=== PATIENT | male | born 1985 | race Caucasian/White ===

== ENCOUNTER 2018-09-15 20:11 | Inpatient (IN) | payer OTHER ==
[~2018-09-15] VITALS: Ht 160 cm; Wt 74.8 kg
--- NOTE | 2018-09-15 20:40 | NUR ---
INTAKE ASSESSMENT BP: 132/78, HR:95, RR:17, SpO2:96% on RA, T:97.6 F Pt is stable and able to be admitted on the unit. Unit protocols regarding medications and vital signs every 4 hours were explained. Pt verbalized understanding. Will continue admission upon arrival on the unit.
[2018-09-15] MEDS ORDERED: IBUPROFEN 600 MG TABLET PO PRN (21:00)
[2018-09-15] MEDS ORDERED: LOPERAMIDE HCL 2 MG CAPSULE PO PRN ×2 (21:00)
[2018-09-15] MEDS ORDERED: HYDROXYZINE PAMOATE 25 MG CAPSULE PO PRN (21:00)
[2018-09-15] MEDS ORDERED: LORAZEPAM 1 MG TABLET PO PRN ×2 (21:00)
[2018-09-15] MEDS ORDERED: LORAZEPAM 2 MG/1 ML VIAL IM PRN (21:00)
[2018-09-15] MEDS ORDERED: CLONIDINE HCL 0.1 MG TABLET PO PRN (21:00)
[2018-09-15] MEDS ORDERED: SRC ALCOHOL WITHDRAWAL ADMITTING PROTOCOL XX PRN (21:00)
[2018-09-15] MEDS ORDERED: ONDANSETRON 4 MG/2 ML VIAL IM PRN (21:00)
[2018-09-15] MEDS ORDERED: diphenhydrAMINE 50 MG CAPSULE PO PRN (21:00)
[2018-09-15] MEDS ORDERED: ONDANSETRON ODT 4 MG TAB.RAPDIS SL PRN (21:00)
[2018-09-15] MEDS ORDERED: MAGNESIUM HYDROXIDE 30 ML LIQUID UDC PO PRN (21:00)
[2018-09-15] MEDS ORDERED: MIRALAX 17 GM POWD.PACK PO PRN (21:00)
[2018-09-15] MEDS ORDERED: MAG HYDROX/AL HYDROX/SIMETH 30 ML LIQUID UDC PO PRN (21:00)
[2018-09-15] MEDS ORDERED: ACETAMINOPHEN 325 MG TABLET PO PRN (21:00)
--- NOTE | 2018-09-15 21:00 | NUR ---
ADMISSION NOTE Patient is a 33 year old male admitted on 09/15/2018 at 2048 to [facility] for medically supervised withdrawal from ETOH. Patient denies any medical or psychiatric diagnoses. The patient is awake, alert, and oriented x4 and is verbally responsive. Patient reports that he has been consuming about 4257 mLs of beer per day and 132 - 176 mLs of either Tequila or Vodka per week for the past 3 months and about 2 to 3 grams of cocaine per day for the past 3 months. Patient was noted to be anxious, restless, and with fine tremors upon admission. He is able to comprehend all questions and is cooperative and helpful during the interview process. Initial CIWA score is 7 upon initial admission. Patient is on a regular diet and has no known allergies. Substance Abuse History: 1) ETOH: Patient stated that he has been consuming about 4257 mLs of beer per day and 132 - 176 mLs of either Tequila or Vodka per week for the past 3 months. He stated that he has been drinking for 19 years since he was 14. The last time he was drinking was yesterday on 09/14/2018 which stopped at 1900 and he consumed about 8514 mL of beer. 2) Cocaine: Patient stated that he has been consuming about 2 to 3 grams of cocaine per day for the past 3 months. He stated that he has been doing cocaine for 10 years since he was 23. The last time he consumed cocaine was yesterday on 09/14/2018 where he consumed about 3 grams over the course of the night into the morning. The patient stated that he has never been to any other treatment center and this admission to [facility] is his first time ever being in treatment. He reports that he has tried at times to stop on his own, but has never had any extended periods of complete sobriety with his longest period of abstaining from alcohol being 1 week and his longest period off of cocaine 1 month. He was unable to recall when these periods were. He states that he used to work as a repairer maintenance building which made it difficult to remain sober due to the availability. The patient states that his drinking has certainly had an effect on his occupation as a delivery driver assistant. He said that he has been calling out from work more often than he should due to still being hung over from a democrat from the night before or from continuing to democrat into the morning hours. He says When they (his family) sees me drinking, they also know that Im doing drugs and they dont want to be around me in reference to his aunts, cousins, brothers, and parents. His three daughters have been continuously supportive of him, but his has not always been supportive. At times, she has shown anger and frustration due to his habits, but just recently has shown support on his way to recovery. The patient states that no one else in his family has had any difficulty dealing with substance abuse. He also denies any past medical history for all members of his family. When asked why this current attempt at getting sober will be different from his previous attempts, he states I knew I couldn't stop by myself. When I first started I thought I could and it would be easy, but I was wrong." When questioned as to why he decided to come into treatment today, he stated "To see the sober perspective of life and change my life around finally." The patient is 5'3" and weighs 165 lbs per standing scale. Skin is dry, intact, and warm to touch. Capillary refill is <3 seconds. PERRLA is present bilaterally with pupils at 4 mm. Breathing is even and unlabored. Lungs are clear to auscultation bilaterally. Abdomen is soft and nondistended and bowel sounds are present in all 4 quadrants. Initial vital signs are as follows: BP: 132/78, HR:95, RR:17, SpO2:96% on RA, T:97.6 F The patient was oriented to the unit at 2048 on 09/14/2018. He was provided instructions regarding unit policies and procedures. Fall and safety precautions initiated and maintained. Bed is in the lowest position with wheels locked and bilateral side rails raised. Call light is functional and within reach. Will continue to monitor.
[2018-09-15 21:54] LABS: *AMPHETAMINE, URINE NEGATIVE (NEGATIVE); *BARBITURATE, URINE NEGATIVE (NEGATIVE); *CANNABINOID, URINE NEGATIVE (NEGATIVE); *COCCAINE, URINE POSITIVE (NEGATIVE); *OPIATE, URINE NEGATIVE (NEGATIVE); *PHENCYCLIDINE SCREEN,URINE NEGATIVE (NEGATIVE)
[2018-09-15] MEDS ORDERED: THIAMINE HCL 200 MG/2 ML VIAL IM ONE (23:00)
[2018-09-15] MEDS ORDERED: OMEP20TA5 PO (23:57)
[2018-09-16] VITALS: BP 132/88
[2018-09-16 02:49] LABS: BASOPHILS # (AUTO) 0.1 K/uL (0.0-8.0); BASOPHILS % (AUTO) 0.8 % (0.0-2.0); EOSINOPHILS # (AUTO) 0.2 K/uL (0.0-0.7); EOSINOPHILS % (AUTO) 3.2 % (0.0-7.0); HEMATOCRIT 42.7 % (36.7-47.1); HEMOGLOBIN 15.6 g/dL (12.5-16.3); LYMPHOCYTES # (AUTO) 2.4 K/uL (20.0-40.0); MEAN CORPUSCULAR HEMOGLOBIN 34.6 uug (23.8-33.4); MEAN CORPUSCULAR HGB CONC 37 g/dL (32.5-36.3); MEAN CORPUSCULAR VOLUME 94.5 fL (73.0-96.2); MONOCYTES # (AUTO) 0.7 K/uL (2.0-10.0); MONOCYTES % (AUTO) 9.5 % (0.0-11.0); NEUTROPHILS # (AUTO) 3.9 K/uL (1.8-8.9); NEUTROPHILS % (AUTO) 53.5 % (38.5-71.5); PLATELET COUNT (AUTO) 257 K/uL (152-348); RED BLOOD CELL COUNT(AUTO) 4.52 MIL/uL (4.06-5.63); WHITE BLOOD COUNT (AUTO) 7.3 K/uL (3.6-10.2)
[2018-09-16 03:07] LABS: ALANINE AMINOTRANSFERASE 81 U/L (16-63); ALKALINE PHOSPHATASE 118 U/L (50-136); AMYLASE 54 U/L (25-115); ASPARTATE AMINOTRANSFERASE 36 U/L (15-37); BILIRUBIN,TOTAL 0.3 mg/dL (0.2-1.0); CARBON DIOXIDE 25 mmol/L (21-32); CHLORIDE 101 mmol/L (98-107); GLUCOSE 128 mg/dL (74-106); LIPASE 278 U/L (73-393); POTASSIUM 3.6 mmol/L (3.5-5.1); TOTAL PROTEIN, SERUM 6.9 g/dL (6.4-8.2); UREA NITROGEN, BLOOD 10 mg/dL (7-18)
[2018-09-16 03:11] LABS: ETHANOL < 3 MG/DL (0-0)
[2018-09-16 03:42] LABS: THYROID STIMULATING HORMONE 4.404 mIU/mL (0.358-3.740)
[2018-09-16 04:00] VITALS: BP 118/66
--- NOTE | 2018-09-16 07:29 | NUR ---
END OF SHIFT Patient is noted lying in bed with eyes closed and even, unlabored respirations. Patient is a newly admitted 33 year old male admitted for medically supervised withdrawal from ETOH with no secondary diagnoses. During the shift, the patient presented with anxiety, fine tremors, and restlessness. Urine drug screen and blood draw completed. Patient was cordial and compliant with all aspects of the therapeutic plan including medication regimen and the interview process. Patient expresses a desire to continue treatment after discharge from [facility] at an inpatient residential facility in [place], but was unable to recall the name. This is his first time in treatment. Last CIWA score is 10 taken at 0000. Patient slept for about 7 hours during the night. HOB is flat and bilateral side rails raised. All safety measures in place. Call light is functional and within reach. Endorsed to oncoming AM nurse.
[2018-09-16 08:00] VITALS: BP 126/77
--- NOTE | 2018-09-16 08:29 | NUR ---
START OF SHIFT: Received Pt A/O X 4. He presents with guarded affect and anxious mood. He reports mild anxiety and states he slept well last night.CIWA 3. PRNS available if Pt feels s/s of w/d. He reports indigestion and heartburn. PRN Mylanta given . Will monitor effectiveness. Encouraged increased fluids. Encouraged group attendance to improve coping skills and prevent relapse. Will continue to monitor and offer support.
[2018-09-16] MEDS ORDERED: TUBERCULIN,PURIF.PROT.DERIV. 5 TU/0.1 ML TEST ID ONE (09:00)
[2018-09-16] MEDS: MULTIVITAMINS,THERAPEUTIC TABLET PO SCH (09:00)
[2018-09-16] MEDS: FOLIC ACID 1 MG TABLET PO SCH (09:20)
[2018-09-16] MEDS: THIAMINE HCL 100 MG TABLET PO SCH (09:20)
[2018-09-16 12:00] VITALS: BP 151/89
[2018-09-16] MEDS ORDERED: HYDR-3895 PO (14:50)
[2018-09-16] MEDS ORDERED: CLON0.1T14 PO (14:50)
[2018-09-16] MEDS ORDERED: DIPH50CA37 PO (14:50)
[2018-09-16 16:00] VITALS: BP 142/87
--- NOTE | 2018-09-16 19:04 | NUR ---
END OF SHIFT: Pt continues to present with guarded affect and anxious mood. Last CIWA 3. He denied s/s of w/d during shift and no PRNS given.He is eating well. He is scheduled for discharge tomorrow to [facility]. Will pass shift report to oncoming night nurse.
[2018-09-16 20:00] VITALS: BP 131/88
--- NOTE | 2018-09-16 20:00 | NUR ---
Start of Shift Pt is a 33 year old male admitted for ETOH withdrawal, and was placed on PRN's for s/s of withdrawal. At time of assessment, pt presents in room, in bed watching television. Pt is alert/oriented x4, cooperative and responds to questions appropriately. Pt appears to be guarded, however begins to respond to questions as assessment continues. Pt reports he feel anxious due to scheduled discharged tomorrow. Pt encouraged to use coping mechanism and was encouraged to look forward to his sobriety. CIWA 3, PRNs available. BP 131/88, HR 96, respirations 17, SpO2 97% room air and temp 98.3. Pt denies any pain. Safety precautions in place, will continue to monitor.
[2018-09-17] MEDS ORDERED: PANTOPRAZOLE SODIUM 40 MG TABLET.DR PO SCH (07:00)
--- NOTE | 2018-09-17 07:00 | NUR ---
End of Shift Pt is a 33 year old admitted for ETOH withdrawal, and was placed on PRN's for s/s of withdrawal. During shift, pt remained in room all throughout shift. Pt is alert/oriented x4, cooperative and responded to questions appropriately. Pt initially appeared to be guarded, however began to respond to questions as assessment continues. Pt reported he feels anxious due to scheduled discharged today. He is going to [facility]. Pt was encouraged to use coping mechanisms and was encouraged to look forward to his sobriety. CIWA 3, No PRNs administered during shift. Pt slept for 8 hours, intake of 1225 ml PO and void x1. Endorsed to day shift.
--- NOTE | 2018-09-17 07:30 | NUR ---
START OF SHIFT NOTE Received report from night nurse, 33 year old male admitted for ETOH withdrawal. Patient was not on any taper but PRN'S available for s/s of withdrawal. Per endorsement patient did not receive any PRN, slept for 8 hours, last CIWA-3. Patient scheduled for discharge this morning. Received patient alert awake oriented x4. Denies any pain or discomfort. Educated patient regarding plan of the day and medications regimen. Patient verbalized understanding. All safety measures in place. Will cont with plan of care.
[2018-09-17 08:00] VITALS: BP 142/93
[2018-09-17 08:08] LABS: BILIRUBIN,TOTAL 0.2 mg/dL (0.2-1.0); CREATININE 1.1 mg/dL (0.6-1.3); POTASSIUM 3.9 mmol/L (3.5-5.1); TOTAL PROTEIN, SERUM 7.3 g/dL (6.4-8.2)
[2018-09-17 08:16] LABS: THYROID STIMULATING HORMONE 2.636 mIU/mL (0.358-3.740)
[2018-09-17] MEDS: FOLIC ACID 1 MG TABLET PO SCH (08:43)
[2018-09-17] MEDS: THIAMINE HCL 100 MG TABLET PO SCH (08:43)
[2018-09-17] MEDS: MULTIVITAMINS,THERAPEUTIC TABLET PO SCH (08:43)
--- NOTE | 2018-09-17 09:47 | NUR ---
DISCHARGE NOTE Patient is alert awake oriented x4 in stable condition. Vital signs WNL. Skin intact warm and dry to touch. Patient denies any SI/HI. All discharge paper is completed sign and dated. All belongings returned to the patient including medications, prescriptions. Patient has been discharge from [facility] on 09/17/18 at 0947. has been notified.
[2018-09-17 15:07] LABS: HEPATITIS B SURFACE AG Negative (Negative)
== END 2018-09-17 09:47 | disposition other institution (70) | DRG 897 ==
LOC: SRC 20:11
PROVIDERS: ADMIT Family Medicine Addiction Medicine; ATTEND Family Medicine Addiction Medicine
PROC: HZ2ZZZZ Detoxification Services for Substance Abuse Treatment (ICD-10-PCS; principal; 2018-09-15)
DX: F10.230 Alcohol dependence with withdrawal, uncomplicated (principal); F14.10 Cocaine abuse, uncomplicated; Y90.9 Presence of alcohol in blood, level not specified; R74.0 Nonspecific elevation of levels of transaminase and lactic acid dehydrogenase [LDH]; R94.6 Abnormal results of thyroid function studies
CPT/HCPCS: 36415; 80307; 80353; 83690; 83735; 84443; 85025; 86592; 86705; 86803; 87340; 87806; G0480; J3411